=== PATIENT | male | born 1955 | race African-American/Black ===

== ENCOUNTER → 2022-06-28 | Outpatient (CLI) | payer MEDICARE, MEDICAID ==
[~2022-06-28] MED LIST: CATHETER FLUSH 10 ML SYR IVP PRN
--- NOTE | 2022-06-28 12:26 | Diagnostic Imaging Report ---
INDICATION: Prostate carcinoma, initial staging. TECHNIQUE: Serum blood glucose level at the time of injection is 123 mg/dL. Patient was administered 9.4 mCi F-18 FDG intravenously in the right hand and PET imaging was performed from the top of the skull to mid thighs. Noncontrast CT was performed for attenuation correction and anatomic correlation. COMPARISON: No prior studies are available for comparison. FINDINGS: There is symmetric activity throughout the brain. Soft tissues of the neck are unremarkable. No mediastinal or hilar hypermetabolism is identified. No definite pulmonary parenchymal hypermetabolism is identified. There is physiologic activity throughout the GI and tract of abdomen and pelvis. No hypermetabolic abdominal or pelvic lymphadenopathy is identified. IMPRESSION: Essentially unremarkable PET/CT study. No suspicious regions of hypermetabolism are detected. Dictated by: Dictated on workstation # [id number]
== END ==
LOC: RAD 06-08 09:55
PROVIDERS: ATTEND Internal Medicine Hematology & Oncology
DX: C61 Malignant neoplasm of prostate (principal)
CPT/HCPCS: 78815; 82947; A9552